=== PATIENT | female | born 1975 | race Hispanic/Latino ===

== ENCOUNTER 2018-01-25 13:13 | Emergency (ER) | payer OTHER ==
[2018-01-25 13:46] LABS: APPEARANCE,URINE Cloudy (CLEAR); BILIRUBIN,URINE Negative (NEGATIVE); COLOR,URINE Yellow (YELLOW); GLUCOSE, URINE (UA) Negative (NEGATIVE); KETONES,URINE Negative (NEGATIVE); LEUKOCYTE ESTERASE ,URINE Negative (NEGATIVE); NITRATE,URINE Negative (NEGATIVE); OCCULT BLOOD,URINE Negative (NEGATIVE); PH,URINE 5.5 (5.0-8.0); PROTEIN,URINE Negative (NEGATIVE)
[2018-01-25 13:52] LABS: HCG,QUAL RESULT NEGATIVE (NEGATIVE)
[2018-01-25 13:53] LABS: BASOPHILS % (AUTO) 0.4 % (0.0-5.0); EOSINOPHILS % (AUTO) 1.3 % (0.0-8.0); LYMPHOCYTES % (AUTO) 29.1 % (21.0-51.0); MEAN CORPUSCULAR HEMOGLOBIN 31.5 pg (27.0-33.0); MEAN CORPUSCULAR VOLUME 92.8 fL (79-99); MONOCYTES % (AUTO) 6.4 % (3.0-13.0); NEUTROPHILS % (AUTO) 62.8 % (40.0-77.0); PLATELET COUNT (AUTO) 262 K/uL (130-400); RED BLOOD CELL COUNT(AUTO) 4.21 MIL/uL (4.00-5.50); RED CELL DISTRIBUTION WIDTH 13.7 % (11.0-15.5); WHITE BLOOD COUNT (AUTO) 7.6 K/uL (4.8-10.8)
[2018-01-25 14:06] LABS: BACTERIA,URINE Rare /HPF (None Seen); MUCUS,URINE Moderate LPF (None Seen); RBC,URINE 0-1 /HPF (0-1); SQUAMOUS EPITHELIAL CELL,UR Few /HPF (0-2); WBC,URINE 0-1 /HPF (0-1)
[2018-01-25 14:13] LABS: CREATININE 0.6 mg/dL (0.5-1.5); POTASSIUM 3.3 mmol/L (3.5-5.1)
[2018-01-25 14:22] LABS: ALBUMIN 3.5 g/dL (3.5-5.0); BILIRUBIN,TOTAL 0.4 mg/dL (0.2-1.0); TOTAL PROTEIN, SERUM 7.8 g/dL (6.0-8.3)
== END 2018-01-25 14:53 | disposition home or self-care (01) ==
LOC: EDH 13:13
DX: R10.32 Left lower quadrant pain (principal)
CPT/HCPCS: 36415; 74176; 80053; 81001; 81025; 85025

== ENCOUNTER 2022-08-26 18:41 | Emergency (ER) | payer OTHER ==
[~2022-08-26] VITALS: Ht 170.2 cm; Wt 68.9 kg
[2022-08-26 19:09] LABS: APPEARANCE,URINE CLOUDY (CLEAR); BILIRUBIN,URINE NEGATIVE (NEGATIVE); COLOR,URINE LIGHT-YELLOW (YELLOW); GLUCOSE, URINE (UA) NEGATIVE (NEGATIVE); KETONES,URINE 5 mg/dL (NEGATIVE); LEUKOCYTE ESTERASE ,URINE NEGATIVE Leu/uL (NEGATIVE); NITRATE,URINE NEGATIVE (NEGATIVE); OCCULT BLOOD,URINE LARGE (NEGATIVE); PH,URINE 5.5 (5.0-8.0); PROTEIN,URINE NEGATIVE (NEGATIVE); UROBILINOGEN,URINE 0.2 mg/dL (0.2-1.0)
[2022-08-26 19:12] LABS: MUCUS,URINE FEW LPF (None Seen); RBC,URINE 51-100 /HPF (0-1); SQUAMOUS EPITHELIAL CELL,UR FEW /HPF (0-2)
[2022-08-26 19:25] LABS: POTASSIUM 3.6 mmol/L (3.5-5.1)
[2022-08-26 19:26] LABS: BASOPHILS % (AUTO) 0.2 % (0.0-5.0); EOSINOPHILS % (AUTO) 0.2 % (0.0-8.0); HEMATOCRIT 38.4 % (36-48); LYMPHOCYTES % (AUTO) 17.9 % (21.0-51.0); MEAN CORPUSCULAR HEMOGLOBIN 30.6 pg (27.0-33.0); MEAN CORPUSCULAR HGB CONC 33.1 g/dL (32.0-36.0); MEAN CORPUSCULAR VOLUME 92.5 fL (79-99); MONOCYTES % (AUTO) 5.3 % (3.0-13.0); NEUTROPHILS % (AUTO) 75.1 % (40.0-77.0); PLATELET COUNT (AUTO) 238 K/uL (130-400); RED BLOOD CELL COUNT(AUTO) 4.15 MIL/uL (4.00-5.50); RED CELL DISTRIBUTION WIDTH 14.7 % (11.0-15.5)
[2022-08-26 19:29] LABS: ALBUMIN 3.8 g/dL (3.5-5.0); TOTAL PROTEIN, SERUM 7.5 g/dL (6.0-8.3)
[2022-08-26] MEDS ORDERED: MORPHINE 4 MG SYG IVP ONE (19:30)
[2022-08-26] MEDS ORDERED: ONDANSETRON 4MG INJ IVP ONE (19:30)
[2022-08-26] MEDS ORDERED: KETOROLAC 15MG/ML VIAL (15MG/ML) IV ONE (19:30)
[2022-08-26] MEDS ORDERED: 0.9%NACL 1000ML 1,000 ML IV ONE (19:30)
[2022-08-26] MEDS ORDERED: ONDA4TAB10 PO ×2 (22:17→22:18)
[2022-08-26] MEDS ORDERED: NAPR500T6 PO (22:17)
[2022-08-26] MEDS ORDERED: ACET-2079 PO (22:17)
[2022-08-26 22:25] VITALS: BP 121/65
== END 2022-08-26 23:00 | disposition home or self-care (01) ==
LOC: EDH 18:41
DX: N20.1 Calculus of ureter (principal); Z90.49 Acquired absence of other specified parts of digestive tract
CPT/HCPCS: 99284; 74176; 96374; 96361; 96375; 80053; 83690; 85025; 81001; 81025; 36415; J7030; J2405; J2270; J1885

== ENCOUNTER 2024-06-01 06:02 | Emergency (ER) | payer OTHER ==
[~2024-06-01] VITALS: Ht 167.6 cm; Wt 137.0 kg
[~2024-06-01 06:02] MED LIST: ACET-2079 PO; NAPR500T6 PO; ONDA-243 PO
[2024-06-01] MEDS: LACTATED RINGERS 1000ML 1,000 ML IV ONE (06:31)
[2024-06-01] MEDS: KETOROLAC 30MG VIAL (30MG/ML) IVP ONE (06:31)
[2024-06-01 06:33] LABS: BASOPHILS # (AUTO) 0.03 K/uL (0.00-0.20); BASOPHILS % (AUTO) 0.3 % (0.0-5.0); EOSINOPHILS # (AUTO) 0.05 K/uL (0.00-0.70); EOSINOPHILS % (AUTO) 0.5 % (0.0-8.0); HEMATOCRIT 35.8 % (36-48); IMMATURE GRANULOCYTE ABSOLUTE 0.08 K/uL (0-1); LYMPHOCYTES # (AUTO) 2.6 K/uL (1.0-4.8); LYMPHOCYTES % (AUTO) 23.6 % (21.0-51.0); MEAN CORPUSCULAR HEMOGLOBIN 30.9 pg (27.0-33.0); MEAN CORPUSCULAR HGB CONC 34.1 g/dL (32.0-36.0); MEAN CORPUSCULAR VOLUME 90.6 fL (79-99); MONOCYTES # (AUTO) 0.9 K/uL (0.1-1.0); MONOCYTES % (AUTO) 7.9 % (3.0-13.0); NEUTROPHILS # (AUTO) 7.4 K/uL (1.8-7.7); PLATELET COUNT (AUTO) 234 K/uL (130-400); RED BLOOD CELL COUNT(AUTO) 3.95 MIL/uL (4.00-5.50); RED CELL DISTRIBUTION WIDTH 14.9 % (11.0-15.5)
[2024-06-01 06:44] LABS: CREATININE 0.9 mg/dL (0.5-1.0); POTASSIUM 3.3 mmol/L (3.5-5.1)
[2024-06-01] MEDS ORDERED: OXYC-38 PO (07:11)
[2024-06-01] MEDS ORDERED: TAMS-1 PO (07:11)
[2024-06-01 07:25] VITALS: BP 156/84; PULSE 83; RESP 17; O2SAT 98
[2024-06-03] MEDS ORDERED: CYCL5TAB PO (11:26)
== END 2024-06-01 07:39 | disposition home or self-care (01) ==
LOC: EDH 06:02
DX: N20.2 Calculus of kidney with calculus of ureter (principal); E78.00 Pure hypercholesterolemia, unspecified; Z79.899 Other long term (current) drug therapy; Z98.890 Other specified postprocedural states
CPT/HCPCS: 99285; 74176; 96374; 80048; 85025; 36415; J7120; J1885

== ENCOUNTER 2024-08-06 10:47 | Emergency (ER) | payer BC ==
[~2024-08-06] VITALS: Ht 165.1 cm; Wt 132.0 kg
[~2024-08-06 10:47] MED LIST changes: +CYCL5TAB PO; +OXYC-38 PO; +TAMS-1 PO
[2024-08-06 11:01] VITALS: TEMP 97.8
[2024-08-06] MEDS: 0.9%NACL 1000ML 1,000 ML IV ONE (11:22)
[2024-08-06] MEDS: acetaMINOPHEN 500 MG TABLET PO ONE (11:24)
[2024-08-06 11:30] LABS: CREATININE 0.8 mg/dL (0.5-1.0); POTASSIUM 3.1 mmol/L (3.5-5.1)
[2024-08-06] MEDS: [UNRECOGNIZED DRUG - OTHER] IV ONE (11:31)
[2024-08-06] MEDS: CEFTRIAXONE 2GM VIAL IVPB ONE (11:31)
[2024-08-06 11:33] LABS: BASOPHILS # (AUTO) 0.03 K/uL (0.00-0.20); BASOPHILS % (AUTO) 0.3 % (0.0-5.0); EOSINOPHILS # (AUTO) 0.11 K/uL (0.00-0.70); EOSINOPHILS % (AUTO) 1.2 % (0.0-8.0); HEMATOCRIT 37.5 % (36-48); IMMATURE GRANULOCYTE ABSOLUTE 0.06 K/uL (0-1); LYMPHOCYTES # (AUTO) 2.3 K/uL (1.0-4.8); LYMPHOCYTES % (AUTO) 24.1 % (21.0-51.0); MEAN CORPUSCULAR HEMOGLOBIN 30.6 pg (27.0-33.0); MEAN CORPUSCULAR HGB CONC 32.5 g/dL (32.0-36.0); MONOCYTES # (AUTO) 0.6 K/uL (0.1-1.0); MONOCYTES % (AUTO) 6.5 % (3.0-13.0); NEUTROPHILS # (AUTO) 6.4 K/uL (1.8-7.7); NEUTROPHILS % (AUTO) 67.3 % (40.0-77.0); PLATELET COUNT (AUTO) 262 K/uL (130-400); RED BLOOD CELL COUNT(AUTO) 3.99 MIL/uL (4.00-5.50); RED CELL DISTRIBUTION WIDTH 13.9 % (11.0-15.5); WHITE BLOOD COUNT (AUTO) 9.5 K/uL (4.8-10.8)
[2024-08-06 11:37] LABS: RAPID GROUP A STREP negative (NEGATIVE)
[2024-08-06 11:46] LABS: COVID19 (SARS ANTIGEN RAPID) PRESUMPTIVE NEGATIVE (NEGATIVE); INFLUENZA TYPE A Negative For Type A (NEGATIVE); INFLUENZA TYPE B Negative For Type B (NEGATIVE)
[2024-08-06 12:02] LABS: APPEARANCE,URINE CLOUDY (CLEAR); BILIRUBIN,URINE NEGATIVE (NEGATIVE); COLOR,URINE YELLOW (YELLOW); GLUCOSE, URINE (UA) NEGATIVE (NEGATIVE); KETONES,URINE 20 mg/dL (NEGATIVE); LEUKOCYTE ESTERASE ,URINE 500 Leu/uL (NEGATIVE); NITRATE,URINE 2+ (NEGATIVE); OCCULT BLOOD,URINE MODERATE (NEGATIVE); PH,URINE 5.5 (5.0-8.0); PROTEIN,URINE 50 mg/dL (NEGATIVE); UROBILINOGEN,URINE 0.2 mg/dL (0.2-1.0)
[2024-08-06] MEDS: PoTASSium BIcarbonate/CIT AC 25 MEQ TABLET.EFF PO ONE (12:09)
[2024-08-06 12:15] LABS: ADD UA MICROSCOPIC YES
[2024-08-06 12:25] LABS: BACTERIA,URINE MANY /HPF (None Seen); MUCUS,URINE FEW LPF (None Seen); SQUAMOUS EPITHELIAL CELL,UR FEW /HPF (0-2); WBC,URINE TNTC /HPF (0-1)
[2024-08-06] MEDS ORDERED: cefTRIAXone 1G VIAL IM ONE (13:00)
[2024-08-06 13:07] VITALS: BP 144/83; PULSE 93; RESP 18; O2SAT 98
[2024-08-06] MEDS ORDERED: AMOX1TAB16 PO (13:37)
[2024-08-06] MEDS ORDERED: IBUP-2077 PO (13:37)
== END 2024-08-06 13:45 | disposition home or self-care (01) ==
LOC: EDH 10:47
DX: N30.01 Acute cystitis with hematuria (principal); Z20.822 Contact with and (suspected) exposure to COVID-19; E87.6 Hypokalemia; R65.10 Systemic inflammatory response syndrome (SIRS) of non-infectious origin without acute organ dysfunction; E11.65 Type 2 diabetes mellitus with hyperglycemia; R50.9 Fever, unspecified; Z79.899 Other long term (current) drug therapy; Z87.442 Personal history of urinary calculi; Z90.49 Acquired absence of other specified parts of digestive tract; Z98.890 Other specified postprocedural states
CPT/HCPCS: 99284; 96365; 87426; 80048; 85025; 87040; 87086 ×2; 87186; 87880; 87804 ×2; 83605 ×2; 81001; 36415; J7030 ×2; J0696

== ENCOUNTER 2024-08-17 21:26 | Emergency (ER) | payer BC ==
[~2024-08-17] VITALS: Ht 167.6 cm; Wt 131.5 kg
[~2024-08-17 21:26] MED LIST changes: +AMOX1TAB16 PO; +IBUP-2077 PO; +NAPR-1506 PO; -NAPR500T6 PO
[2024-08-17 22:26] LABS: BASOPHILS # (AUTO) 0.03 K/uL (0.00-0.20); BASOPHILS % (AUTO) 0.4 % (0.0-5.0); EOSINOPHILS # (AUTO) 0.13 K/uL (0.00-0.70); EOSINOPHILS % (AUTO) 1.6 % (0.0-8.0); HEMATOCRIT 37.1 % (36-48); IMMATURE GRANULOCYTE ABSOLUTE 0.02 K/uL (0-1); LYMPHOCYTES # (AUTO) 2.6 K/uL (1.0-4.8); LYMPHOCYTES % (AUTO) 32.3 % (21.0-51.0); MEAN CORPUSCULAR HEMOGLOBIN 31.2 pg (27.0-33.0); MEAN CORPUSCULAR HGB CONC 33.7 g/dL (32.0-36.0); MEAN CORPUSCULAR VOLUME 92.5 fL (79-99); MONOCYTES # (AUTO) 0.6 K/uL (0.1-1.0); NEUTROPHILS # (AUTO) 4.7 K/uL (1.8-7.7); NEUTROPHILS % (AUTO) 58.4 % (40.0-77.0); PLATELET COUNT (AUTO) 264 K/uL (130-400); RED BLOOD CELL COUNT(AUTO) 4.01 MIL/uL (4.00-5.50); RED CELL DISTRIBUTION WIDTH 13.8 % (11.0-15.5)
[2024-08-17 22:34] LABS: CREATININE 0.8 mg/dL (0.5-1.0)
[2024-08-17 22:40] LABS: POTASSIUM 2.8 mmol/L (3.5-5.1)
[2024-08-17 23:26] LABS: APPEARANCE,URINE CLEAR (CLEAR); COLOR,URINE YELLOW (YELLOW)
[2024-08-17 23:27] LABS: ADD UA MICROSCOPIC YES; BILIRUBIN,URINE NEGATIVE (NEGATIVE); GLUCOSE, URINE (UA) NEGATIVE (NEGATIVE); KETONES,URINE Moderate mg/dL (NEGATIVE); LEUKOCYTE ESTERASE ,URINE SMALL Leu/uL (NEGATIVE); NITRATE,URINE NEGATIVE (NEGATIVE); OCCULT BLOOD,URINE MODERATE (NEGATIVE); PROTEIN,URINE 30 (1+) mg/dL (NEGATIVE); UROBILINOGEN,URINE 0.2 mg/dL (0.2-1.0)
[2024-08-17 23:36] LABS: BACTERIA,URINE Few /HPF (None Seen); SQUAMOUS EPITHELIAL CELL,UR Moderate /HPF (0-2)
[2024-08-18] MEDS ORDERED: FAMO-136 PO (00:33)
[2024-08-18] MEDS ORDERED: ONDA-243 PO (00:33)
[2024-08-18] MEDS ORDERED: NITR100C4 PO (00:34)
[2024-08-18] MEDS: ondanSETRON 4MG INJ IVP ONE (00:58)
[2024-08-18] MEDS: PoTASSium BIcarbonate/CIT AC 25 MEQ TABLET.EFF PO ONE (01:09)
[2024-08-18] MEDS: NS-20 MEQ KCL 1000ML 1,000 ML IV ONE (01:10)
[2024-08-18 02:00] VITALS: BP 136/84; PULSE 89; RESP 20; TEMP 98.2; O2SAT 97
== END 2024-08-18 02:10 | disposition home or self-care (01) ==
LOC: EDH 21:26
DX: R42 Dizziness and giddiness (principal); E11.9 Type 2 diabetes mellitus without complications; E78.00 Pure hypercholesterolemia, unspecified; E66.01 Morbid (severe) obesity due to excess calories; Z90.49 Acquired absence of other specified parts of digestive tract; Z68.42 Body mass index [BMI] 45.0-49.9, adult
CPT/HCPCS: 99284; 80048; 85025; 87086; 81001; 36415; 96374; 96361; J2405; J3480

== ENCOUNTER 2024-10-19 12:02 | Emergency (ER) | payer BC ==
[~2024-10-19] VITALS: Ht 165.1 cm; Wt 73.0 kg
[~2024-10-19 12:02] MED LIST changes: -ACET-2079 PO; -AMOX1TAB16 PO; -CYCL5TAB PO; +FAMO20TA8 PO; -IBUP-2077 PO; +LACT1CAP79 PO; +METO5VIA IVP; -NAPR-1506 PO; -ONDA-243 PO; -OXYC-38 PO; -TAMS-1 PO
--- NOTE | 2024-10-19 12:45 | ERN ---
ED Note History of Present Illness Stated Complaint: WEAKNESS Chief Complaint: Weakness Dictation: Patient is 49-year-old female with past medical history of hypotension, GERD, PUD came to the ED with chief complaint of weakness since 3 weeks. Patient had numbness on left arm today Patient also informed about nausea, 1 episode of vomiting yesterday and previous history of hospitalization for severe nausea, dizziness, balance issues. Patient denies chest pain, shortness of breath, abdominal pain, headaches. Patient admits to take marijuana 5 days ago Allergies: Coded Allergies: No Known Drug Allergies (Unverified Allergy, Unknown, 08/26/22) Home Meds Active Scripts Cephalexin Monohydrate (Keflex) 500 Mg Cap, 500 MG PO BID for 7 Days, #14 CAP Prov:MARY MARR MD 10/19/24 Potassium Chloride (Potassium Chloride) 10 Meq Capsule.er, 10 MEQ PO BID for 7 Days, #14 CAP Prov:MARY MARR MD 10/19/24 Metoclopramide HCl (Metoclopramide HCl) 5 Mg/Ml Vial, 10 MG IVP TIDAC, #90 VIAL Prov:CHAVEZ AUGUSTINE AGPCNP 09/19/24 Lactobacillus Rhamnosus GG (Culturelle) 15 Billion Cell Cap.sprink, 1 EACH PO TID, #15 CAP.SPRINK Prov:DEB STAPLETON TILE ERECTOR 08/30/24 Reported Medications Famotidine (Famotidine) 20 Mg Tablet, 1 TAB PO BID 08/30/24 Past Medical History Past Medical History: GERD, Hypotension, P.U.D. Additional Past Medical Hx: HX OF KIDNEY STONES Surgical History: Appendectomy, Cholecystectomy, Family History: Negative Social History: Negative History: Not Applicable Review of System Dictation Constitutional-no chills, weight loss/gain, fever Eyes-no injury, pain, redness and discharge ENT-no injury, pain, swelling Cardiovascular no chest pain, palpitations, edema Respiratory no shortness of breath , wheezing. Patient has cough Abdomen/GI-no abdominal pain, diarrhea, constipation. patient has vomiting, nausea Back no injury and pain Genitourinary no injury, bleeding and discharge Musculoskeletal/extremities no injury, deformity Skin no rash, discoloration Neuro-no headache, seizures, tremors. Patient complains weakness, numbness, tingling Psych-no suicidal ideation, homicidal ideation, hallucinations, depression, anxiety, memory loss Initial Vital Sign VS Vital Signs Date Time Temp Pulse Resp B/P (MAP) Pulse Ox O2 Delivery O2 Flow Rate FiO2 10/19/24 12:10 98.2 101 18 124/64 98 Room Air* 0 21 Physical Exam Dictation General-patient is awake alert and oriented Head/neck-normocephalic, atraumatic Eyes-PERRL, EOMI, vision at baseline Neck-trachea midline, supple, no nuchal rigidity Cardiovascular-RRR, normal S1/S2, no MRG is, no JVD Respiratory-no distress, wheezing, rales, rhonchi Abdomen-no tenderness, guarding, soft, nondistended Skin warm, dry, normal turgor, no rash Musculoskeletal/extremities pulses equal, no cyanosis Neuro-COA X 4, GCS 15, strength 2/5, CN 2-12 intact Psych-normal behavior, mood and affect normal Results (Laboratory/Radiology) Laboratory/Radiology Laboratory Tests Test 10/19/24 12:42 10/19/24 13:53 White Blood Count 8.9 K/uL (4.8-10.8) Red Blood Count 3.78 MIL/uL (4.00-5.50) L Hemoglobin 12.0 g/dL (12.0-16.0) Hematocrit 35.1 % (36-48) L Mean Corpuscular Volume 92.9 fL (79-99) Mean Corpuscular Hemoglobin 31.7 pg (27.0-33.0) Mean Corpuscular Hemoglobin Concent 34.2 g/dL (32.0-36.0) Red Cell Distribution Width 14.2 % (11.0-15.5) Platelet Count 294 K/uL (130-400) Mean Platelet Volume 11.8 fL (7.5-10.5) H Immature Granulocyte % (Auto) 0.3 % (0-1) Neutrophils (%) (Auto) 66.1 % (40.0-77.0) Lymphocytes (%) (Auto) 24.5 % (21.0-51.0) Monocytes (%) (Auto) 6.4 % (3.0-13.0) Eosinophils (%) (Auto) 2.4 % (0.0-8.0) Basophils (%) (Auto) 0.3 % (0.0-5.0) Neutrophils # (Auto) 5.8 K/uL (1.8-7.7) Lymphocytes # (Auto) 2.2 K/uL (1.0-4.8) Monocytes # (Auto) 0.6 K/uL (0.1-1.0) Eosinophils # (Auto) 0.21 K/uL (0.00-0.70) Basophils # (Auto) 0.03 K/uL (0.00-0.20) Absolute Immature Granulocyte (auto 0.03 K/uL (0-1) Nucleated Red Blood Cells 0.0 % (0.0-0.19) Sodium Level 142 mmol/L (136-145) Potassium Level 2.9 mmol/L (3.5-5.1) *L Chloride Level 106 mmol/L (101-111) Carbon Dioxide Level 24 mmol/L (21-32) Blood Urea Nitrogen 8 mg/dL (7-18) Creatinine 0.8 mg/dL (0.5-1.0) Glomerular Filtration Rate Calc 89 mL/min (>90) Random Glucose 117 mg/dL (70-105) H Total Calcium 9.0 mg/dL (8.5-10.1) Magnesium Level 1.60 mg/dL (1.80-2.40) L Total Creatine Kinase 58 U/L (21-232) Urine Color YELLOW (YELLOW) Urine Appearance CLOUDY (CLEAR) H Urine pH 6.5 (5.0-8.0) Urine Specific [place] 1.023 (1.001-1.031) Urine Protein 30 mg/dL (NEGATIVE) H Urine Glucose (UA) NEGATIVE mg/dL (NEGATIVE) Urine Ketones 10 mg/dL (NEGATIVE) H Urine Occult Blood NEGATIVE (NEGATIVE) Urine Nitrate NEGATIVE (NEGATIVE) Urine Bilirubin 0.5 mg/dL (NEGATIVE) H Urine Urobilinogen >=8.0 mg/dL (0.2-1.0) H Urine Leukocyte Esterase 75 Vero/uL (NEGATIVE) H Urine RBC 6-10 /HPF (0-1) H Urine WBC 11-25 /HPF (0-1) H Urine Squamous Epithelial Cells FEW /HPF (0-2) Urine Other Crystals (Auto) 1 /HPF (None Seen) Urine Bacteria RARE /HPF (None Seen) Urine Hyaline Casts 2-5 /LPF (0-1 /LPF) H Urine Opiates Screen NEGATIVE (NEGATIVE) Urine Barbiturates Screen NEGATIVE (NEGATIVE) Urine Phencyclidine Screen NEGATIVE (NEGATIVE) Urine Amphetamines Screen NEGATIVE (NEGATIVE) Urine Benzodiazepines Screen NEGATIVE (NEGATIVE) Urine Cocaine Screen NEGATIVE (NEGATIVE) Urine Marijuana (THC) Screen POSITIVE (NEGATIVE) H EKG Comment: EKG taken on 10/19/2024 at 12:32 p.m. Patient is in sinus rhythm with heart rate of 88 FL [address] elevations or depressions seen on EKG ED Course ED Course Orders Procedure Category Date Status Time Cbc With Differential LAB 10/19/24 Complete 12: 12 Lead Ekg Tracing- EKG 10/19/24 Complete Technical 12: Magnesium LAB 10/19/24 Complete 12:24 Creatine Kinase, Total LAB 10/19/24 Complete 12: Urinalysis Profile LAB 10/19/24 Complete 12: Basic Metabolic Panel LAB 10/19/24 Complete 12:24 Drug Screen Urine LAB 10/19/24 Complete 12:24 Ondansetron 4mg Inj PHA 10/19/24 Complete (Zofran 4mg Inj) 13:00 Pantoprazole 40mg Inj PHA 10/19/24 Complete (Protonix 40mg Inj 13:00 Magnesium 2gm Premix PHA 10/19/24 In Process 50ml (Magnesium 2gm 13:30 Potassium Chloride PHA 10/19/24 Complete 10meq/100ml ([place] 13:30 Potassium Chloride PHA 10/19/24 Complete 10meq Sr (K-Dur 10meq 13:30 Culture Urine JESSIKA 10/19/24 Logged 15:10 Ceftriaxone 1g Vial PHA 10/19/24 Complete (Rocephine 1g Inj) 15:30 Current Medications Medications (Trade) Dose Ordered Sig/Ashlyn Route PRN Reason Start Time Stop Time Status Last Admin Dose Admin Ceftriaxone Sodium (ROCEphine 1G INJ) 1 gm ONCE ONCE IVPB 10/19/24 15:30 10/19/24 15:31 DC Magnesium Sulfate 50 ml @ 0 mls/hr PROTOCOL IV 10/19/24 13:30 11/18/24 13:29 10/19/24 13:18 Ondansetron HCl (zoFRAN 4MG INJ) 4 mg ONCE ONCE IVP 10/19/24 13:00 10/19/24 13:01 DC 10/19/24 13:10 Pantoprazole Sodium (PROTonix 40MG INJ) 40 mg ONCE ONCE IVP 10/19/24 13:00 10/19/24 13:01 DC 10/19/24 13:10 Potassium Chloride 100 ml @ 100 mls/hr ONCE ONCE IV 10/19/24 13:30 10/19/24 14:29 DC 10/19/24 13:18 Potassium Chloride (K-Dur 10meq Sr Tab) 10 meq ONCE ONCE PO 10/19/24 13:30 10/19/24 13:31 DC 10/19/24 13:18 Vital Signs Date Time Temp Pulse Resp B/P (MAP) Pulse Ox O2 Delivery O2 Flow Rate FiO2 10/19/24 14:30 98.2 93 18 129/73 100 Room Air* 0 21 10/19/24 12:24 98.2 88 18 156/67 100 Room Air* 0 21 10/19/24 12:12 98.2 94 18 197/97 100 Room Air 0 10/19/24 12:10 98.2 101 18 124/64 98 Room Air* 0 21 Medical Decision Making MDM INITIAL IMPRESSION Initial history and physical concerning for anemia, drug use, hypokalemia, hyponatremia Contributing medical problems: GERD, marijuana use I have reviewed the triage nursing notes and vital signs. Initial plan: Laboratory evaluation DATA REVIEW I have reviewed additional NN, repeat VS, and monitoring where indicated. Heart rate, blood pressure, and O2 saturation are acceptable. ED COURSE Interventions: Magnesium and potassium repletion Reassessment: Patient symptoms improved DISPOSITION Final diagnostic impression: Hypokalemia I discussed my findings, clinical impression and treatment recommendations with the patient. My final plan for disposition was made based upon -mild risk of complications and potential morbidity of the patient's condition. -Discussion with the patient regarding management options. Patient will be discharged with medications DX & DISP Disposition: Discharge Departure Impression: Primary Impression: Hypokalemia Additional Impression: Nausea & vomiting Condition: Stable Scripts Cephalexin Monohydrate (Keflex) 500 Mg Cap 500 MG PO BID for 7 Days, #14 CAP Prov: MARY MARR MD 10/19/24 Potassium Chloride (Potassium Chloride) 10 Meq Capsule.er 10 MEQ PO BID for 7 Days, #14 CAP Prov: MARY MARR MD 10/19/24 Additional Instructions: Come back to the ED for any acute or emergency symptoms Take the medication as prescribed and get your potassium level checked after the short course of potassium treatment Drink more water to avoid frequent urinary tract infections, take antibiotics as prescribed Referrals: NICHELLE QUINTANILLA (PCP) Time of Disposition: 15:41 I have reviewed I have reviewed the case I have examined patient MARY MARR MD Oct 19, 2024 12:45
--- NOTE | 2024-10-19 12:45 | EKG ---
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
[2024-10-19 12:48] LABS: BASOPHILS # (AUTO) 0.03 K/uL (0.00-0.20); BASOPHILS % (AUTO) 0.3 % (0.0-5.0); EOSINOPHILS # (AUTO) 0.21 K/uL (0.00-0.70); EOSINOPHILS % (AUTO) 2.4 % (0.0-8.0); HEMATOCRIT 35.1 % (36-48); IMMATURE GRANULOCYTE ABSOLUTE 0.03 K/uL (0-1); LYMPHOCYTES # (AUTO) 2.2 K/uL (1.0-4.8); LYMPHOCYTES % (AUTO) 24.5 % (21.0-51.0); MEAN CORPUSCULAR HEMOGLOBIN 31.7 pg (27.0-33.0); MEAN CORPUSCULAR HGB CONC 34.2 g/dL (32.0-36.0); MEAN CORPUSCULAR VOLUME 92.9 fL (79-99); MONOCYTES # (AUTO) 0.6 K/uL (0.1-1.0); MONOCYTES % (AUTO) 6.4 % (3.0-13.0); NEUTROPHILS # (AUTO) 5.8 K/uL (1.8-7.7); NEUTROPHILS % (AUTO) 66.1 % (40.0-77.0); PLATELET COUNT (AUTO) 294 K/uL (130-400); RED BLOOD CELL COUNT(AUTO) 3.78 MIL/uL (4.00-5.50); RED CELL DISTRIBUTION WIDTH 14.2 % (11.0-15.5); WHITE BLOOD COUNT (AUTO) 8.9 K/uL (4.8-10.8)
[2024-10-19 13:02] LABS: CREATININE 0.8 mg/dL (0.5-1.0); MAGNESIUM 1.6 mg/dL (1.80-2.40)
[2024-10-19 13:05] LABS: POTASSIUM 2.9 mmol/L (3.5-5.1)
[2024-10-19] MEDS: PANTOPrazole 40 MG/VIAL IVP ONE (13:10)
[2024-10-19] MEDS: ondanSETRON 4MG INJ IVP ONE (13:10)
[2024-10-19] MEDS: PoTASSium chloRIDE 10MEQ/100ML 100 ML IV ONE (13:18)
[2024-10-19] MEDS: PoTASSium chloRIDE 10MEQ SR 10 MEQ/TAB TAB.SR.24H PO ONE (13:18)
[2024-10-19] MEDS: MAGNESIUM 2GM PREMIX 50ML 50 ML IV SCH (13:18)
[2024-10-19 14:55] LABS: AMPHET/METH SCREEN,URINE NEGATIVE (NEGATIVE); BARBITURATE SCREEN, URINE NEGATIVE (NEGATIVE); BENZODIAZEPINES SCREEN,URINE NEGATIVE (NEGATIVE); CANNABINOID SCREEN,URINE POSITIVE (NEGATIVE); COCAINE SCREEN,URINE NEGATIVE (NEGATIVE); OPIATE SCREEN,URINE NEGATIVE (NEGATIVE); PHENCYCLIDINE SCREEN,URINE NEGATIVE (NEGATIVE)
[2024-10-19 14:58] LABS: APPEARANCE,URINE CLOUDY (CLEAR); BILIRUBIN,URINE 0.5 mg/dL (NEGATIVE); COLOR,URINE YELLOW (YELLOW); GLUCOSE, URINE (UA) NEGATIVE (NEGATIVE); KETONES,URINE 10 mg/dL (NEGATIVE); LEUKOCYTE ESTERASE ,URINE 75 Leu/uL (NEGATIVE); NITRATE,URINE NEGATIVE (NEGATIVE); OCCULT BLOOD,URINE NEGATIVE (NEGATIVE); PH,URINE 6.5 (5.0-8.0); PROTEIN,URINE 30 mg/dL (NEGATIVE); UROBILINOGEN,URINE >=8.0 mg/dL (0.2-1.0)
[2024-10-19 15:09] LABS: ADD UA MICROSCOPIC YES
[2024-10-19 15:18] LABS: BACTERIA,URINE RARE /HPF (None Seen); MUCUS,URINE FEW LPF (None Seen); SQUAMOUS EPITHELIAL CELL,UR FEW /HPF (0-2); UNCLASSIFIED CRYSTAL 1 /HPF (None Seen)
[2024-10-19] MEDS ORDERED: CEPH500B PO (15:24)
[2024-10-19] MEDS ORDERED: POTA10CA95 PO (15:24)
[2024-10-19] MEDS: cefTRIAXone 1G VIAL IVPB ONE (16:46)
[2024-10-19 17:01] VITALS: BP 140/86; PULSE 86; RESP 18; TEMP 98.2; O2SAT 100
== END 2024-10-19 17:19 | disposition home or self-care (01) ==
LOC: EDH 12:02
DX: E87.6 Hypokalemia (principal); R11.2 Nausea with vomiting, unspecified; K21.9 Gastro-esophageal reflux disease without esophagitis; Z90.49 Acquired absence of other specified parts of digestive tract
CPT/HCPCS: 99284; 96365; 96375; 96366 ×2; 82550; 83735; 80048; 80305; 85025; 87086 ×2; 87186; 81001; 36415; 96368; 93005; J3475; J0696; J2405; J2470; J3480